=== PATIENT | male | born 1995 | race Caucasian/White ===

== ENCOUNTER 2018-04-18 04:09 | Emergency (ER) | payer SELFPAY ==
[2018-04-18] MEDS ORDERED: Ibuprofen 800 MG TAB ONE (04:19)
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
== END 2018-04-18 04:50 | disposition home or self-care (01) ==
LOC: ERS 04:09
DX: S60.221A Contusion of right hand, initial encounter (principal); J45.909 Unspecified asthma, uncomplicated; F17.210 Nicotine dependence, cigarettes, uncomplicated; Y04.8XXA Assault by other bodily force, initial encounter

== ENCOUNTER 2021-05-27 18:24 | Emergency (ER) | payer SELFPAY | END 2021-05-27 20:09 | disposition left against medical advice (07) | LOC: ERS 18:24 | DX: Z53.21 Procedure and treatment not carried out due to patient leaving prior to being seen by health care provider (principal) ==